=== PATIENT | female | born 1995 | race Caucasian/White ===

== ENCOUNTER 2016-10-06 20:18 | Emergency (ER) | payer BC ==
[2016-10-06 20:29] VITALS: RESP 16; TEMP 98.4
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
[2016-10-06 21:47] VITALS: BP 108/76; PULSE 78; O2SAT 98
== END 2016-10-06 21:47 | disposition home or self-care (01) ==
DX: S42.401A Unspecified fracture of lower end of right humerus, initial encounter for closed fracture (principal); V18.0XXA Pedal cycle driver injured in noncollision transport accident in nontraffic accident, initial encounter; Y93.55 Activity, bike riding
CPT/HCPCS: A4565